=== PATIENT | male | born 1995 | race Caucasian/White ===

== ENCOUNTER 2019-01-14 12:29 | Emergency (ER) | payer BC ==
[2019-01-14 13:02] VITALS: BP 143/75
[2019-01-14] MEDS ORDERED: Ibuprofen TAB* 600 MG PO ONE (13:47)
[2019-01-14] MEDS ORDERED: Ondansetron ODT TAB* 4 MG PO ONE (13:47)
--- NOTE | 2019-01-14 13:50 | UC ---
FLU HPI - HPI Summary HPI Summary: 23-year-old male comes in with a chief complaint of 2 days of fevers chills body aches and nausea. He also has yellow and green rhinorrhea. States he has a chronic runny nose. Also has sports induced asthma and this illness has made her feel more short of breath he is not use his albuterol inhaler. He took some DayQuil yesterday which did help a little bit with the symptoms. - History of Current Complaint Chief Complaint: UCGeneralIllness Stated Complaint: ACHES,FEVER,ST,COUGH Time Seen by Provider: 01/14/19 13:43 Pain Intensity: 7 - Allergy/Home Medications Allergies/Adverse Reactions: Allergies Allergy/AdvReac Type Severity Reaction Status Date / Time No Known Allergies Allergy Verified 01/14/19 12:57 PMH/Surg Hx/FS Hx/Imm Hx Previously Healthy: Yes Respiratory History: Asthma - Surgical History Surgical History: None - Family History Known Family History: Positive: Non-Contributory - Social History Alcohol Use: Weekly Substance Use Type: None Smoking Status (MU): Never Smoked Tobacco Review of Systems All Other Systems Reviewed And Are Negative: Yes Constitutional: Positive: Fever, Chills Skin: Positive: Negative Eyes: Positive: Negative ENT: Positive: Sore Throat, Nasal Discharge, Sinus Congestion Respiratory: Positive: Shortness Of Breath Cardiovascular: Positive: Negative Gastrointestinal: Positive: Negative Motor: Positive: Negative Neurovascular: Positive: Negative Musculoskeletal: Positive: Myalgia Neurological: Positive: Negative Psychological: Positive: Negative Is Patient Immunocompromised?: No Physical Exam Triage Information Reviewed: Yes Appearance: No Pain Distress, Well-Nourished, Ill-Appearing - mild Vital Signs: Initial Vital Signs Temp 99.4 F 01/14/19 12:56 Pulse 73 01/14/19 12:56 Resp 18 01/14/19 12:56 BP 143/75 01/14/19 12:56 Pulse Ox 99 01/14/19 12:56 Vital Signs Reviewed: Yes Eye Exam: Normal Eyes: Positive: Conjunctiva Clear ENT: Positive: Pharyngeal erythema, Nasal congestion, Nasal drainage, TMs normal Neck exam: Normal Neck: Positive: Supple Respiratory: Positive: Lungs clear, Normal breath sounds, No respiratory distress Cardiovascular: Positive: RRR Musculoskeletal Exam: Normal Musculoskeletal: Positive: Strength Intact, ROM Intact Neurological Exam: Normal Neurological: Positive: Alert, Muscle Tone Normal Psychological Exam: Normal Psychological: Positive: Age Appropriate Behavior Skin Exam: Normal Flu Course/Dx - Differential Dx/Diagnosis Provider Diagnosis: Influenza Discharge - Sign-Out/Discharge Documenting (check all that apply): Patient Departure All imaging exams completed and their final reports reviewed: No Studies - Discharge Plan Condition: Stable Disposition: HOME Prescriptions: Ondansetron ODT TAB* [Zofran 4 MG Odt TAB*] 4 mg PO Q6H PRN #10 tab.odt PRN Reason: Nausea Oseltamivir CAP* [Tamiflu CAP*] 75 mg PO BID #10 cap Patient Education Materials: Influenza (ED) Forms: *School Release Referrals: [facility] [Outside] [facility] [place] [facility] [Outside] Additional Instructions: FOLLOW UP WITH YOUR DOCTOR IF NOT COMPLETELY IMPROVED. GET RECHECKED FOR ANY WORSENING OF YOUR CONDITION OR QUESTIONS OR CONCERNS. - Billing Disposition and Condition Condition: STABLE Disposition: Home
[2019-01-14 13:56] LABS: Influenza A Molecular POSITIVE (Negative)
== END 2019-01-14 14:16 | disposition home or self-care (01) ==
LOC: UCCORT 12:29
DX: J11.1 Influenza due to unidentified influenza virus with other respiratory manifestations (principal); J45.909 Unspecified asthma, uncomplicated
CPT/HCPCS: 99202; A9270-GY; G0463